=== PATIENT | male | born 1985 | race Caucasian/White ===

== ENCOUNTER 2017-10-29 21:38 | Emergency (ER) | payer BC, OTHER ==
--- NOTE | 2017-10-29 22:26 | EDM.PDOC ---
ED HPI GENERAL MEDICAL PROBLEM - General Chief Complaint: Neurological Problem Stated Complaint: DOUBLE VISION AND DIZZY Time Seen by Provider: 10/29/17 22:03 Source of Information: Reports: Patient History Limitations: Reports: No Limitations - History of Present Illness INITIAL COMMENTS - FREE TEXT/NARRATIVE: The patient states that he developed diplopia and dizziness - more vertigo than lightheadedness, around 13:00. His symptoms are worse if he is supine or walking. He has a slight headache, but denies any tingling, numbness, weakness, photophobia, or phonophobia. He denies having any ear pain, tenderness, or decreased hearing. No recent nausea. No recent fever. No prior similar symptoms. The patient states that he has ADHD, and takes Adderall 20 mg on an as-needed basis. His last dosage was yesterday. The patient's PCP is Liliana Ahumada. Right Eye Pain Score (Numeric/FACES): 2 - Related Data Allergies Allergy/AdvReac Type Severity Reaction Status Date / Time Penicillins Allergy Anaphylactic Verified 10/29/17 21:48 Shock Home Meds: Home Meds Albuterol Sulfate 1 puff INH ASDIRECTED 10/29/17 [History] Dextroamphetamine/Amphetamine [Adderall] 20 mg PO DAILY 10/29/17 [History] Pantoprazole Sodium [Protonix] 40 mg PO DAILY 10/29/17 [History] Past Medical History Respiratory History: Reports: Asthma Gastrointestinal History: Reports: GERD, Hiatal Hernia, Other (See Below) ( Schatzki ring) Psychiatric History: Reports: ADHD - Past Surgical History HEENT Surgical History: Reports: Oral Surgery ([place] teeth extraction), Tonsillectomy GI Surgical History: Reports: Appendectomy, EGD (x 4 or 5) Male Surgical History: Reports: Other (See Below) (Bilateral teste torsion) Social & Family History - Tobacco Use Smoking Status *Q: Never Smoker Second Hand Smoke Exposure: No - Caffeine Use Caffeine Use: Reports: Coffee, Soda - Alcohol Use Alcohol Use History: Yes Alcohol Use Frequency: Rarely - Recreational Drug Use Recreational Drug Use: No - Living Situation & Occupation Living situation: Reports: Single, Alone Occupation: Employed ([employer]) ED ROS GENERAL - Review of Systems Review Of Systems: ROS reveals no pertinent complaints other than HPI. ED EXAM, NEURO - Physical Exam Exam: See Below Exam Limited By: No Limitations General Appearance: Alert, WD/WN, No Apparent Distress Eye Exam: Bilateral Eye: PERRL, Other (Slightly crossed gaze. Diplopia is more pronounced at a distance, less close in, more pronounced with leftward gaze, less with rightward gaze) Ears: Normal External Exam, Normal Canal, Hearing Grossly Normal, Normal TMs Nose: Normal Inspection, Normal Mucosa, No Blood Throat/Mouth: Normal Inspection, Normal Lips, Normal Teeth, Normal Gums, Normal Oropharynx, Normal Voice, No Airway Compromise Head Exam: Atraumatic, Normocephalic Neck: Normal Inspection, Supple, Non-Tender, Full Range of Motion Respiratory/Chest: No Respiratory Distress, Lungs Clear, Normal Breath Sounds, No Accessory Muscle Use Cardiovascular: Normal Peripheral Pulses, Regular Rate, Rhythm, No Edema, No Gallop, No JVD, No Murmur, No Rub GI/Abdominal: Normal Bowel Sounds, Soft, Non-Tender, No Organomegaly, No Distention, No Abnormal Bruit, No Mass (Male) Exam: Deferred Rectal (Males) Exam: Deferred Neurological: Alert, Normal Dorsiflexion, Normal Plantar Flexion, Oriented x 3, Other (Diplopia prominent at distance, resolves with close images. Decreased right visual field of the left eye only.) Back Exam: Normal Inspection, Full Range of Motion, NT Extremities: Normal Inspection, Normal Range of Motion, No Pedal Edema, Normal Capillary Refill Psychiatric: Normal Affect Skin Exam: Warm, Dry, Intact, Normal Color, No Rash Course - Vital Signs Last Recorded V/S: Last Vital Signs Temp 36.7 C 10/29/17 21:44 Pulse 85 10/29/17 21:44 Resp 20 10/29/17 21:44 BP 143/90 H 10/29/17 21:44 Pulse Ox 98 10/29/17 21:44 Orthostatic Blood Pressure [ 129/91 Standing] Orthostatic Blood Pressure [ 131/86 Supine] - Orders/Labs/Meds Orders: Active Orders 24 hr Category Date Time Status Accu Check [Blood Glucose Check, Bedside] [RC] ONETIME Care 10/29/17 22:19 Active Orthostatic Vital Signs [RC] STAT Care 10/29/17 22:05 Active Ang Head [CT] Stat Exams 10/29/17 22:19 Taken Labs: Laboratory Tests 10/29/17 Range/Units 22:34 POC Glucose 103 (70-105) mg/dL Meds: Medications Discontinued Medications Generic Name Dose Route Start Last Admin Trade Name Freq PRN Reason Stop Dose Admin Benztropine Mesylate 1 mg 10/29/17 23:34 10/29/17 23:45 Cogentin PO 10/29/17 23:35 1 mg ONETIME STA Administration Haloperidol Lactate 5 mg 10/29/17 23:34 10/29/17 23:45 Haldol IM 10/29/17 23:35 5 mg ONETIME ONE Administration Sodium Chloride 1,000 mls @ 150 mls/hr 10/29/17 22:30 10/29/17 22:39 Normal Saline IV 150 mls/hr ASDIRECTED DANY Administration Sodium Chloride 100 mls @ 65 mls/hr 10/29/17 22:45 10/29/17 23:00 Normal Saline IV 65 mls/hr ASDIRECTED DANY Administration Iopamidol 100 ml 10/29/17 22:31 10/29/17 22:59 Isovue-370 (76%) IVPUSH 10/29/17 22:32 100 ml ONETIME ONE Administration Ondansetron HCl 4 mg 10/30/17 00:09 10/30/17 00:13 Zofran Odt PO 10/30/17 00:10 4 mg ONETIME ONE Administration Sodium Chloride 10 ml 10/29/17 22:31 10/29/17 23:00 Saline Flush FLUSH 10 ml ONETIME PRN Administration IV FLUSH - Re-Assessments/Exams Free Text/Narrative Re-Assessment/Exam: 10/29/17 22:24 The patient complains of diplopia, disequilibrium, and a slight headache. On physical exam, his eyes appear to be disconjugate, although it is unclear which eye is deviated, and he has a diminished right visual field of his left eye. I' m concerned about a tumor or enlarging aneurysm. Ultimately, the patient requires a MRI, which I cannot get tonight, however, I have put in an order for a cerebral angiogram to look for an aneurysm. If the CT angiogram is negative, arrangements could then be made for him to have a MRI of the brain on Wednesday. 10/29/17 23:30 CT angiogram of the head is read by [facility] as "Normal head CTA." 10/29/17 23:33 CT angiogram results discussed with the patient. I would like to make sure that this is not an unusual presentation of a migraine. The patient has agreed to treatment for a migraine with IM Haldol. 10/30/17 00:09 The patient reports resolution of his diplopia, lightheadedness/disequilibrium, and slight headache following IM Haldol, however, he now complains of feeling hot/cold and nausea. The resolution of his presenting symptoms following Haldol , in combination with the negative CT angiogram of the head, strongly suggest that the patient's symptoms were migrainous in etiology. I have ordered 4 mg oral Zofran. 10/30/17 00:[address] [facility] at 00:16. Case then discussed with the Neurologist Dr. Lucio at 00:20. Because the patient's neurologic symptoms resolved following Haldol, he does not think it likely that the patient has an anatomic abnormality that is responsible for his symptoms. He is concerned that the patient may be taking too much Adderall, and that his symptoms could be due to that, although they could also be due to a migraine. Nevertheless, he would like the patient to undergo a MRI, but feels that if the patient's symptoms do not return over the weekend, the MRI can wait until Wednesday. If, however, the patient's symptoms return, he would like the patient to return to the ED so that an emergent MRI could be arranged. I will recommend that the patient not take any more Adderall until his MRI is negative. Ordinarily, I would prescribe Maxalt for suspected or confirmed migraines, however, in this case, if the patient has recurrence of his symptoms , we want him to go to the nearest emergency department, not take Maxalt, therefore in this case, I'm not going to prescribe Maxalt. Presuming the patient does not have any new symptoms over the weekend, I would like him to follow-up with his PCP, Liliana Ahumada, on Wednesday, to arrange for an outpatient MRI. Departure - Departure Time of Disposition: 00:33 Disposition: Home, Self-Care 01 Condition: Good Clinical Impression: Migraine without aura - Discharge Information Instructions: Migraine Headache, [id number] Referrals: Liliana Bach NP [Primary Care Provider] - Forms: ED Department Discharge Additional Instructions: You were seen in the emergency room for double vision, dizziness, and a slight headache. Workup in the ER included positional blood pressure checks, and Accu-Chek, and a CT angiogram of your head. Your entire workup was negative. Your symptoms resolved after you were given IM Haldol, strongly indicating that your symptoms were due to a migraine. Your case was discussed with the Neurologist Dr. Lucio. He recommends that you get a MRI of your head, however, provided you remain asymptomatic, it can wait until Wednesday. Dr. Lucio is also concerned that your symptoms may be related to the dosage of Adderall that you are taking. We recommend that you not take any Adderall until/unless a MRI of your head is negative. Follow-up with your PCP, Liliana Little, this coming 11/01/2017, to arrange for an outpatient MRI of your head. If your symptoms return over the weekend, please go to the nearest ER to arrange for an emergent MRI of your head. - My Orders Last 24 Hours: My Active Orders 10/29/17 22:05 Orthostatic Vital Signs [RC] STAT 10/29/17 22:19 Accu Check [Blood Glucose Check, Bedside] [RC] ONETIME Ang Head [CT] Stat - Assessment/Plan Last 24 Hours: My Active Orders 10/29/17 22:05 Orthostatic Vital Signs [RC] STAT 10/29/17 22:19 Accu Check [Blood Glucose Check, Bedside] [RC] ONETIME Ang Head [CT] Stat
[2017-10-29] MEDS ORDERED: Sodium Chloride 0.9% 1,000 ML IV SCH (22:30)
[2017-10-29] MEDS ORDERED: Sodium Chloride 0.9% 10 ML Syringe FLUSH PRN (22:31)
[2017-10-29] MEDS ORDERED: Iopamidol 755 Mg/ML 100 ML Bottle IVPUSH ONE (22:31)
[2017-10-29] MEDS ORDERED: Sodium Chloride 0.9% 100 ML IV SCH (22:45)
[2017-10-29] MEDS ORDERED: Haloperidol Lactate 5 MG/ML SDV IM ONE (23:34)
[2017-10-29] MEDS ORDERED: Benztropine 1 MG Tab PO STA (23:34)
[2017-10-30] MEDS ORDERED: Ondansetron 4 MG Tab.DIS PO ONE (00:09)
--- NOTE | 2017-11-01 08:44 | CT ---
CT angiogram of brain Technique: Multiple axial sections were obtained following intravenous contrast. Findings: Basilar artery and posterior cerebral arteries are within normal limits. Anterior and middle cerebral arteries are within normal limits. Carotid siphon is patent. No focal areas of stenosis are seen. No aneurysm is appreciated. Ventricles along the basal cisterns and sulci over the convexities are within normal limits. No abnormal areas of enhancement seen within the brain parenchyma. No midline shift or mass effect is seen. Bone window setting show no discrete calvarial abnormality. Minimal mucosal thickening seen within the right maxillary sinus which is incidental. Impression: 1. No abnormality is identified on CT angiogram of brain. Please note that MR angiogram is more sensitive for aneurysm than CT exam. Diagnostic code #1 I agree with preliminary report from [facility], finalized at 10/30/17, 12:27 AM Central Time
== END 2017-10-30 00:43 | disposition home or self-care (01) ==
LOC: JD.ED 21:38
DX: G43.009 Migraine without aura, not intractable, without status migrainosus (principal); K21.9 Gastro-esophageal reflux disease without esophagitis; Z88.0 Allergy status to penicillin; Z79.899 Other long term (current) drug therapy; Z90.49 Acquired absence of other specified parts of digestive tract
CPT/HCPCS: 70496; 82962; 96360; 96372; 99285; A9270; J1630; J7030; J7040; J7050; Q9967; 99284